=== PATIENT | female | born 1975 | race African-American/Black ===

== ENCOUNTER 2019-06-24 18:36 | Emergency (ER) | payer MEDICARE, MEDICAID ==
[~2019-06-24] VITALS: Ht 170.2 cm; Wt 85.0 kg
[2019-06-25] MEDS ORDERED: CYCLOBENZAPRINE 10MG TABLET PO ONE
[2019-06-25] MEDS ORDERED: KETOROLAC 60MG/2ML VIAL IM ONE
[2019-06-25 03:15] VITALS: BP 115/70
== END 2019-06-25 03:15 | disposition home or self-care (01) ==
LOC: ER 18:36
DX: S16.1XXA Strain of muscle, fascia and tendon at neck level, initial encounter (principal); S29.012A Strain of muscle and tendon of back wall of thorax, initial encounter; V49.59XA Passenger injured in collision with other motor vehicles in traffic accident, initial encounter; Y93.89 Activity, other specified; Y92.89 Other specified places as the place of occurrence of the external cause; Y99.8 Other external cause status
CPT/HCPCS: 72070; 96372; 99283; J1885

== ENCOUNTER 2020-06-19 17:43 | Emergency (ER) | payer MEDICARE, MEDICAID ==
[~2020-06-19] VITALS: Ht 170.2 cm; Wt 83.0 kg
[2020-06-19 20:07] LABS: BASOPHILS % 1.3 % (0.0-2.0); EOSINOPHILS % 3.9 % (0.0-5.0); HEMATOCRIT. 28.9 % (36.0-48.0); HEMOGLOBIN. 8.8 g/dL (12.0-16.0); LYMPHOCYTES % 35.8 % (20.0-50.0); MEAN CORPUSCULAR HEMOGLOBIN 18.8 pg (28.0-32.0); MEAN CORPUSCULAR VOLUME 61.9 fL (81.0-99.0); MEAN PLATELET VOLUME 9.7 fl (7.4-10.4); PLATELET 209 x1000/uL (130-400); RED BLOOD CELL COUNT 4.67 mill/uL (4.2-5.4); RED CELL DISTRIBUTION WIDTH 19.6 % (11.6-14.6)
[2020-06-19 20:14] LABS: CHLORIDE 108 mEq/L (98-107)
[2020-06-19 20:17] LABS: INR 1.1; PROTHROMBIN TIME 11.1 sec (9.6-11.0)
[2020-06-19 20:32] LABS: PLATELET ESTIMATE NORMAL
[2020-06-19 20:33] LABS: HCG SCREEN NEGATIVE
[2020-06-19] MEDS ORDERED: KETOROLAC 15MG/ML VIAL IV ONE (21:15)
[2020-06-19] MEDS ORDERED: IOHEXOL-300 100 ML BOTTLE ONE (23:30)
[2020-06-20] MEDS ORDERED: ACETAMINOPHEN 325MG TABLET PO ONE (02:00)
[2020-06-20 02:15] VITALS: BP 110/70
== END 2020-06-20 02:16 | disposition home or self-care (01) ==
LOC: ER 17:43
DX: S42.002A Fracture of unspecified part of left clavicle, initial encounter for closed fracture (principal); W18.39XA Other fall on same level, initial encounter; Y93.89 Activity, other specified; Y92.89 Other specified places as the place of occurrence of the external cause; Y99.8 Other external cause status; Z98.890 Other specified postprocedural states; Z88.6 Allergy status to analgesic agent
CPT/HCPCS: 36415; 70450; 71045; 71260; 72125; 73030; 73060; 73070; 74177; 80053; 83605; 83690; 84484; 84703; 85025; 85610; 86850; 86900; 86901; 93005; 96374; 99285; J1885; Q9967